=== PATIENT | female | born 1995 ===

== ENCOUNTER 2020-01-08 14:15 | Inpatient (IN) | payer OTHER ==
[~2020-01-08] VITALS: Ht 152.4 cm; Wt 71.7 kg
[2020-01-09] MEDS ORDERED: PRENATAL TABLE1 EAC1 PO (08:25)
== END 2020-01-13 12:24 | disposition home or self-care (01) | DRG 788 ==
LOC: LDR 01-10 06:50 → OB/GYN 01-10 06:50
PROVIDERS: ADMIT Obstetrics & Gynecology; ATTEND Obstetrics & Gynecology
PROC: 4A0HXFZ Measurement of Products of Conception, Cardiac Rhythm, External Approach (ICD-10-PCS; 2020-01-10)
PROC: 3E033VJ Introduction of Other Hormone into Peripheral Vein, Percutaneous Approach (ICD-10-PCS; 2020-01-10)
PROC: 10D00Z1 Extraction of Products of Conception, Low, Open Approach (ICD-10-PCS; principal; 2020-01-10 14:00)
DX: O61.0 Failed medical induction of labor (principal); Z3A.38 38 weeks gestation of pregnancy; Z37.0 Single live birth; Z20.828 Contact with and (suspected) exposure to other viral communicable diseases

== ENCOUNTER 2020-01-09 08:19 | Outpatient (CLI) | payer OTHER ==
[2020-01-09] MEDS ORDERED: PRENATAL TABLE1 EAC1 PO (08:25)
== END 2020-01-10 06:43 | disposition still patient (30) ==
LOC: OBS/DEL 08:19
PROVIDERS: ATTEND Obstetrics & Gynecology
DX: O47.1 False labor at or after 37 completed weeks of gestation (principal); Z20.828 Contact with and (suspected) exposure to other viral communicable diseases

== ENCOUNTER 2023-10-12 13:14 | Outpatient (CLI) | payer OTHER ==
[~2023-10-12 13:14] MED LIST: PRENATAL TABLE1 EAC1 PO
== END 2023-10-12 13:17 | disposition home or self-care (01) ==
LOC: PRENATAL 13:14
PROVIDERS: ATTEND Obstetrics & Gynecology Maternal & Fetal Medicine
DX: O35.3XX0 Maternal care for (suspected) damage to fetus from viral disease in mother, not applicable or unspecified (principal); O44.00 Complete placenta previa NOS or without hemorrhage, unspecified trimester; O34.219 Maternal care for unspecified type scar from previous cesarean delivery; Z3A.21 21 weeks gestation of pregnancy

== ENCOUNTER 2023-12-26 13:25 | Outpatient (CLI) | payer OTHER | END 2023-12-26 13:26 | disposition home or self-care (01) | LOC: PRENATAL 13:25 | PROVIDERS: ATTEND Obstetrics & Gynecology Maternal & Fetal Medicine | DX: O26.849 Uterine size-date discrepancy, unspecified trimester (principal); O36.8199 Decreased fetal movements, unspecified trimester, other fetus; O34.219 Maternal care for unspecified type scar from previous cesarean delivery; Z3A.32 32 weeks gestation of pregnancy ==

== ENCOUNTER 2024-02-10 11:19 | Inpatient (IN) | payer OTHER ==
[~2024-02-10] VITALS: Ht 152.4 cm; Wt 2.7 kg
[2024-02-10 11:05] VITALS: BP 109/76
[2024-02-10] MEDS ORDERED: AMPICILLIN SODIUM 2,000 MG VIAL IV ONE (11:45)
[2024-02-10] MEDS ORDERED: RINGERS SOLUTION,LACTATED 1,000 ML IV SCH (11:45)
[2024-02-10 12:52] LABS: URINE APPEARANCE Clear; URINE BILIRRUBIN Negative (NEGATIVE); URINE BLOOD Negative; URINE COLOR Yellow; URINE GLUCOSE Negative (NEGATIVE); URINE KETONE Negative (NEGATIVE); URINE LEUKOCYTE Trace; URINE NITRATE Negative; URINE PROTEIN Negative (NEGATIVE)
[2024-02-10 12:56] LABS: URINE BACTERIA 1057.4 uL (0.0-1933); URINE EPITHELIAL CELLS 32.9 uL (0.0-38.8); URINE WBC 16.3 uL (0.0-23.2)
[2024-02-10 12:58] LABS: URINE CAST 0.88 uL (0.0-1.40); URINE RBC 1.9 uL (0.0-20.8)
[2024-02-10 13:03] LABS: HEMATOCRIT 34.1 % (36.0-45.00); HEMOGLOBIN 11.4 g/dL (12.0-15.00); MEAN CELL VOLUME 80.4 fL (80.00-100.00); MEAN CORPUSCULAR HEMOGLOBIN 26.9 pg (27.00-32.0); MEAN CORPUSCULAR HGB CONC 33.4 g/dl (32.0-36.0); PLATELET COUNT 250 K/uL (150-450); RED BLOOD COUNT 4.24 M/uL (4.00-6.00); RED CELL DISTRIBUTION WIDTH 14.2 % (11.5-14.5)
[2024-02-10 13:22] LABS: INR < 0.93; PROTHROMBIN TIME 9.9 SECONDS (9.0-11.5)
[2024-02-10 13:27] LABS: ALBUMIN 2.8 gm/dL (3.4-5.0); BILIRUBIN TOTAL 0.35 mg/dL (0.3-1.2); CALCIUM 8.6 mg/dL (8.5-10.1); CREATININE SERUM 0.57 mg/dL (0.55-1.02); GFR 125.4; GLOBULINA 3.7 G/DL (2.4-3.5); POTASSIUM 4.11 mEq/L (3.5-5.1); TOTAL PROTEIN 6.5 gm/dL (6.4-8.2)
[2024-02-10] MEDS ORDERED: AMPICILLIN SODIUM 1,000 MG VIAL IV SCH (16:00)
[2024-02-10 16:10] VITALS: BP 108/72
[2024-02-10] MEDS ORDERED: ERYTHROMYCIN BASE OPHT 1GM EACH TUBE OP ONE ×2 (16:59→19:15)
[2024-02-10] MEDS ORDERED: OXYTOCIN 10 UNITS/ML VIAL ONE (16:59)
[2024-02-10] MEDS ORDERED: CEFAZOLIN SODIUM 1,000 MG VIAL ONE (17:38)
[2024-02-10] MEDS ORDERED: MORPHINE SULFATE 4 MG/ML CARTRIDGE IV PRN (18:15)
[2024-02-10] MEDS ORDERED: AMPICILLIN SODIUM 1,000 MG VIAL ONE (19:10)
[2024-02-10] MEDS ORDERED: OXYTOCIN 10 UNITS/ML VIAL IV ONE (19:15)
[2024-02-10] MEDS ORDERED: MORPHINE SULFATE 4 MG/ML VIAL IV ONE (19:25)
[2024-02-10] MEDS ORDERED: ONDANSETRON HCL 2 MG/ML VIAL ONE (19:39)
[2024-02-10 20:05] VITALS: BP 119/80
[2024-02-11 00:01] VITALS: BP 98/60
[2024-02-11 08:00] VITALS: BP 118/79
[2024-02-11] MEDS ORDERED: OxyCODONE HCL/APAP UD (PERCOCET) PO PRN (10:15)
[2024-02-11 17:56] VITALS: BP 110/74
[2024-02-12 01:00] VITALS: BP 103/51
[2024-02-12 07:55] VITALS: BP 110/79
[2024-02-12 15:38] VITALS: BP 106/73
[2024-02-13 00:29] VITALS: BP 109/74
[2024-02-13 08:47] VITALS: BP 104/73
[2024-02-13] MEDS ORDERED: CEFAZOLIN SODIUM 1,000 MG VIAL IV ONE (09:00)
== END 2024-02-13 15:31 | disposition home or self-care (01) | DRG 785 ==
LOC: LDR 11:19 → OB/GYN 11:19
PROVIDERS: ADMIT Obstetrics & Gynecology Obstetrics; ATTEND Obstetrics & Gynecology Obstetrics
PROC: 0UB70ZZ Excision of Bilateral Fallopian Tubes, Open Approach (ICD-10-PCS; 2024-02-10)
PROC: 4A1HXCZ Monitoring of Products of Conception, Cardiac Rate, External Approach (ICD-10-PCS; 2024-02-10)
PROC: 10D00Z1 Extraction of Products of Conception, Low, Open Approach (ICD-10-PCS; principal; 2024-02-10 16:00)
DX: O34.211 Maternal care for low transverse scar from previous cesarean delivery (principal); O62.0 Primary inadequate contractions; Z3A.38 38 weeks gestation of pregnancy; Z37.0 Single live birth; Z30.2 Encounter for sterilization